=== PATIENT | female | born 1945 | race Caucasian/White ===

== ENCOUNTER 2018-02-04 11:22 | Outpatient (CLI) | payer MEDICARE, OTHER ==
--- NOTE | 2018-02-06 15:53 | MMO ---
BILATERAL SCREENING MAMMOGRAM: Date: 02/04/18 HISTORY: 73-year-old female. Routine screening mammography. COMPARISON: 08/16/17, 09/16/13. TECHNIQUE: CC and MLO views of both breasts are submitted for interpretation. This patient's mammogram was reviewed with the assistance of computer-aided detection. FINDINGS: The breasts are composed of scattered fibroglandular tissue. Bilaterally, no suspicious dominant mass , architectural distortion, or suspicious calcifications. Bilateral benign-appearing calcifications a re identified. IMPRESSION: BIRADS 2: Benign Finding(s) RECOMMENDATION: Annual mammogram. POS: [facility]
== END 2018-02-04 11:23 | disposition home or self-care (01) ==
LOC: SCSMAMMO 11:22
PROVIDERS: ATTEND Internal Medicine
DX: Z12.31 Encounter for screening mammogram for malignant neoplasm of breast (principal)
CPT/HCPCS: 77067

== ENCOUNTER 2018-06-02 14:11 | Emergency (ER) | payer MEDICARE, OTHER ==
[2018-06-02] MEDS ORDERED: Dexamethasone 4 mg/ml Vial ONE (14:44)
== END 2018-06-02 16:28 | disposition home or self-care (01) ==
LOC: ERS 14:11
DX: D49.6 Neoplasm of unspecified behavior of brain (principal); I10 Essential (primary) hypertension; Z87.891 Personal history of nicotine dependence
CPT/HCPCS: 96374; J1100

== ENCOUNTER 2018-06-06 08:45 | Outpatient (CLI) | payer MEDICARE, OTHER ==
[2018-06-06] MEDS ORDERED: Gadobenate Dimeglumine 529 MG/1 ML (20ML VIAL) ONE (10:13)
--- NOTE | 2018-06-06 12:10 | MRI ---
MRI BRAIN WITH AND WITHOUT IV CONTRAST: 06/06/2018 HISTORY: Abnormal CT scan demonstrating mass in left posterior temporoparietal region in a patient with a hist ory of lung cancer and altered mental status. COMPARISON: MRI brain on 06/24/[address] head on 06/02/2018. FINDINGS: There is an enhancing mass seen in the left temporoparietal region, measuring 2.4 cm craniocaudal x 2 .5 cm AP x 2.3 cm transverse. There is increased signal intensity on the pre-contrast T1 weighted im ages with evidence of susceptibility artifact on the gradient echo images, consistent with hemorrhage within this lesion. No addition enhancing lesions are seen throughout the brain. There is vasogeni c edema adjacent to the mass in the left temporoparietal lobe with adjacent mild sulcal effacement. There is no shift of the midline structures. This mass was not visualized on the prior study from 2014. Again noted are chronic small vessel ischemic changes and cerebral volume loss. Remote cavitated lac unar infarctions are again seen in each basal ganglia, as well as the right thalamus. There is a sma ll amount of hemosiderin deposition associated with the lacunar infarction in the left basal ganglia. There is no evidence of an acute infarction. The ventricular system is normal in size, shape, and po sition for the degree of volume loss. Appropriate flow voids are demonstrated at the base of the brain. The [place] lenses are absent. There is mucosal thickening/effusion involving several right-sided mastoid air cells with minimal mas toid effusions on the left. The visualized paranasal sinuses are clear. IMPRESSION: 1. Hemorrhagic enhancing lesion, left temporoparietal region with associated vasogenic edema. Given the patient's history of lung cancer, this likely represents a solitary hemorrhagic metastatic lesio n. 2. Moderate to severe chronic small vessel ischemic changes. 3. 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 4. Mastoid effusions bilaterally, greater on the right. POS: [facility]
== END 2018-06-06 08:46 | disposition home or self-care (01) ==
LOC: MRI 08:45
PROVIDERS: ATTEND Neurological Surgery
DX: D49.6 Neoplasm of unspecified behavior of brain (principal); G93.9 Disorder of brain, unspecified; G93.6 Cerebral edema; H74.8X3 Other specified disorders of middle ear and mastoid, bilateral
CPT/HCPCS: 70553

== ENCOUNTER 2018-11-04 09:33 | Outpatient (CLI) | payer MEDICARE, OTHER ==
[2018-11-04] MEDS ORDERED: Gadobenate Dimeglumine 529 MG/1 ML (20ML VIAL) ONE (12:53)
--- NOTE | 2018-11-04 14:47 | MRI ---
MRI BRAIN WITH AND WITHOUT CONTRAST: DATE: 11-04-18 HISTORY: 73-year-old female with lung cancer, metastatic to the brain, status post radiosurgery. Restaging. COMPARISON: 06-06-18 TECHNIQUE: Multiple sequences obtained in axial, sagittal, and coronal planes; pre and post IV injection of gado linium-based contrast agent: 13 ml MultiHance FINDINGS: The previously described hemorrhagic enhancing intraaxial tumor mass in the left parietal lobe, encro aching upon the superolateral edge of the temporal lobe, has slightly decreased in size. It currently measures approximately 2 x 2 x 1.7 cm. There is significantly less surrounding vasogenic edema now t [place] before. It still consists mostly of intracellular methemoglobin, but now contains a small amount of extrasellar methemoglobin at its posterior aspect. There are no new enhancing metastatic lesions. Again noted is the old confluent infarction involving the left basal ganglia, left caudate nucleus, a nd adjacent left sprague radiata, with associated mild focal ex vacuo dilation at a region of the body of the left lateral ventricle. There is a tiny old lacunar infarction in the right thalamus. Tiny focal fluid signal intensity in th e lateral aspect of the right basal ganglia could represent a dilated Virchow-Jan space rather than a tiny old lacunar infarction (no surrounding gliosis). There are confluent and patchy moderate chronic ischemic white matter changes in the periventricular and deep cerebral white matter, encroaching upon subcortical white matter, to a similar degree as pre viously. No mass effect or midline shift. No obstructive hydrocephalus. There is a right mastoid effu elizabeth. No restricted diffusion. IMPRESSION: 1. Mild interval decrease in size of the hemorrhagic tumor in the left parietal lobe, with interval s ignificant reduction in the surrounding vasogenic edema, consistent with interval response to therapy of the solitary brain metastasis. 2. Moderate chronic ischemic white matter changes. 3. 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 4. Tiny old lacunar infarction of right thalamus. 5. Right mastoid effusion. 6. No new intracranial metastasis. BARRERA Shin POS: [facility]
== END 2018-11-04 09:34 | disposition home or self-care (01) ==
LOC: SCSMRI 09:33
PROVIDERS: ATTEND Radiology Radiation Oncology
DX: C34.90 Malignant neoplasm of unspecified part of unspecified bronchus or lung (principal); C79.31 Secondary malignant neoplasm of brain; H74.8X1 Other specified disorders of right middle ear and mastoid; G93.6 Cerebral edema; D49.6 Neoplasm of unspecified behavior of brain; Z86.73 Personal history of transient ischemic attack (TIA), and cerebral infarction without residual deficits
CPT/HCPCS: 70553; 82565; A9577

== ENCOUNTER 2018-12-03 09:11 | Outpatient (CLI) | payer MEDICARE, OTHER ==
[~2018-12-03 09:11] MED LIST: Iopamidol 300 61% 100 ML VIAL FS ONE
--- NOTE | 2018-12-03 14:42 | CT ---
CT THORAX WITH IV CONTRAST: Date: 12-03-18 History: Lung cancer. History of right upper lobectomy in 2015. Comparison: 09-07-15, PET CT 11-01-15 FINDINGS: There have been interval post-surgical changes related to right upper lobectomy. Previously noted spi culated mass in the right upper lobe is no longer visualized. There is suture material seen within th e right suprahilar region with linear densities present in the region of the right middle lobe likely related to areas of mild scarring. Linear densities are also seen at the right lung base peripherall y, probably related to areas of mild scarring. No pulmonary nodule or mass is seen in the lungs bilat erally. Dense vascular calcifications are seen in the thoracic aorta and visualized upper abdominal aorta as well as involving the coronary arteries. Left subclavian Mediport catheter is noted in place with the tip overlying the proximal SVC. Mild compression fractures involving the superior endplatea of the T12 and L2 vertebral bodies are ag ain seen and stable from prior exam in 2015. No lytic or sclerotic lesions are appreciated. There are mild scattered degenerative changes in the thoracic spine. A few subcentimeter too small to characterize hypodense lesions are seen in each kidney. CT abdomen i s otherwise unchanged from the prior exam in 2015. Vascular calcifications in the upper abdominal aor ta. IMPRESSION: 1. Post-surgical changes related to right upper lobectomy. No pulmonary nodule or mass is seen on thi s examination, and there is no evidence of lymphadenopathy. 2. Dense vascular calcifications. 3. Compression fracture along the superior endplate of the T12 and L2 vertebral bodies, with stable d egree of height loss compared to study in 2015. POS: [facility]
== END 2018-12-03 09:12 | disposition home or self-care (01) ==
LOC: SCSCT 09:11
PROVIDERS: ATTEND Internal Medicine Hematology & Oncology
DX: C34.90 Malignant neoplasm of unspecified part of unspecified bronchus or lung (principal); I70.90 Unspecified atherosclerosis; M48.54XD Collapsed vertebra, not elsewhere classified, thoracic region, subsequent encounter for fracture with routine healing; M48.56XD Collapsed vertebra, not elsewhere classified, lumbar region, subsequent encounter for fracture with routine healing; Z90.2 Acquired absence of lung [part of]
CPT/HCPCS: 71260; 82565

== ENCOUNTER 2019-01-05 08:57 | Outpatient (CLI) | payer MEDICARE, OTHER ==
--- NOTE | 2019-01-05 10:22 | MRI ---
FExam: Brain MRI with and without contrast HISTORY: Evaluate intracranial metastases COMPARISON: 11/04/2018 FINDINGS: Stable hemosiderin deposition involving a metastatic deposit in the left temporal lobe. No additional areas of hemorrhage on the axial gradient echo sequence Calvarium is a normal T1 marrow signal intensity. Midline ring critical structures are unremarkable Stable T2 and FLAIR white matter hyperintensities due to a combination of chronic small vessel ischem ic change as well as vasogenic edema, in the left temporal lobe. Redemonstration of an intrinsically T1 hyperintense lesion in the left temporal lobe with evidence of components of enhancement, measurin g 1.9 cm cranial caudal by 1.6 cm mediolateral by 1.9 cm anterior-posterior. Previously, this lesion measured 1.8 x 1.9 x 1.7 cm. No appreciable change. Central arterial flow voids are maintained. Absent restricted diffusion Malacic changes secondary to previous lacunar infarcts involving the left and right deep jessica matter structures. Persistent opacification of the right mastoid air cells. No new or additional areas of enhancement in the cerebrum or cerebellum. IMPRESSION: 1. Essentially stable metastatic focus in the left temporal lobe. 2. No new metastatic deposits.
== END 2019-01-05 08:58 | disposition home or self-care (01) ==
LOC: SCSMRI 08:57
PROVIDERS: ATTEND Radiology Radiation Oncology
DX: C79.31 Secondary malignant neoplasm of brain (principal); C34.90 Malignant neoplasm of unspecified part of unspecified bronchus or lung
CPT/HCPCS: 70553; 82565

== ENCOUNTER 2019-04-08 10:22 | Outpatient (CLI) | payer MEDICARE, OTHER ==
--- NOTE | 2019-04-08 13:33 | MRI ---
MRI OF BRAIN WITH AND WITHOUT CONTRAST: 04/08/19 COMPARISON: 01/05/19. HISTORY: Metastatic disease. Status post radiosurgery. Follow-up exam. FINDINGS: The calvarium has a normal T1 marrow signal intensity. Midline brain parenchymal structures are unrem arkable. There is evidence of hemosiderin deposition especially with the previously identified metastatic lesi on in the left temporal lobe. There is a second hyponintense lesion in the left temporal lobe. There is stable T1 hyperintensity with associated mixed signal intensity on the T2 weighted images wi th regards to a lesion centered in the left temporal lobe. Postcontrast images demonstrate a stable p eripherally enhancing centrally mixed signal intensity lesion in the left temporal lobe measuring 1. 7 x 2.1 cm. There does appear to be interval development of a new satellite lesion measuring 0.5 x 0. 4 cm. There is associated hemosiderin deposition, which is new since the previous exam. No additional evidence of left cerebral metastases. No pathologic enhancement with regards to the right cerebrum o r cerebellum. Central arterial flow voids are maintained. No restricted diffusion. Adequate aeration of the sinuses and mastoid air cells. IMPRESSION: 1. Stable enhancing mass centered in the left temporal lobe, currently measuring 1.7 x 2.1 cm (p reviously measuring 1.6 x 2.0 cm). There is interval development of a smaller satellite lesion just m edial to the left temporal lesion. On the gradient echo sequence, there is hypointensities suggesting hemosiderin deposition. POS: [facility]
== END 2019-04-08 10:23 | disposition home or self-care (01) ==
LOC: MRI 10:22
PROVIDERS: ATTEND Radiology Radiation Oncology
DX: C79.31 Secondary malignant neoplasm of brain (principal); G93.89 Other specified disorders of brain
CPT/HCPCS: 70553

== ENCOUNTER 2019-05-28 14:35 | Outpatient (CLI) | payer MEDICARE, OTHER ==
--- NOTE | 2019-05-28 20:16 | MRI ---
MRI OF BRAIN WITH AND WITHOUT CONTRAST: 05/28/19 CLINICAL HISTORY: Lung malignancy. History of metastases. Reference made to 04/08/19 exam. FINDINGS: Enhancing, intra-axial mass of the left temporoparietal lobe is redemonstrated and measures 2 cm AP x 1.9 cm transverse, stable to slightly increased in volume. Adjacent intra-axial enhancing lesion jus t medially persists, and has increased since prior exam, and there are likely two immediately adjacen t lesions within this region now present indicating interval progression. The largest of these two le sions is approximately 1 cm in diameter, and the immediately adjacent smaller enhancing focus is appr oximately 6-7 mm in diameter. Progressive vasogenic edema in this region also present. Intrinsic T1 h yperintensity as well as susceptibility artifact redemonstrated compatible with tumoral hemorrhage. D egree of hemorrhagic susceptibility has increased correlating to the above described progression of m etastatic lesions. Persistent diffuse white matter signal alteration throughout each hemisphere noted. No acute territor ial infarction. No midline shift. Stable size of ventricular system. Bilateral mastoid fluid, right greater than left is again seen. There is asymmetric nonspecific enhan cement about the right temporomandibular joint, predominantly locating to the confines of the synoviu m. Slight underlying marrow edema of the right mandibular condylar head is seen. IMPRESSION: 1. Progressive intracranial metastases, as above. 2. Nonspecific prominent enhancement about the right TMJ. This could relate to an inflammatory a rthropathy, as it predominantly localizing to the synovium of the right temporomandibular joint with slight underlying marrow edema of the right mandibular condylar head. Recommend correlation for evide nce of inflammatory arthropathy, and as necessary follow-up may be obtained. POS: [facility]
== END 2019-05-28 14:36 | disposition home or self-care (01) ==
LOC: SCSMRI 14:35
PROVIDERS: ATTEND Radiology Radiation Oncology
DX: C34.90 Malignant neoplasm of unspecified part of unspecified bronchus or lung (principal); C79.31 Secondary malignant neoplasm of brain
CPT/HCPCS: 70553